=== PATIENT | female | born 1955 | race Caucasian/White ===

== ENCOUNTER 2016-12-30 03:32 | Emergency (ER) | payer OTHER, MEDICAID ==
[~2016-12-30] VITALS: Ht 149.9 cm; Wt 80.5 kg
[2016-12-30 03:42] VITALS: Ht 149.9 cm; Wt 80.5 kg
--- NOTE | 2016-12-30 06:46 | ERD ---
ER Documentation Chief Complaint Date/Time DATE: 12/30/16 Chief Complaint Left lumbar back pain radiating down the left lower extremity HPI The patient is a 61-year-old female with history of right kidney transplant hypertension, who presents the Emergency Department, with complaint of left lumbar back pain radiating down the left lower extremity. The patient reports that 3 days ago she had an accidental mechanical slip and fall in the bathroom, falling onto her back. Since, she has developed pain to the left lumbar region and radiates down the left lower extremity. The pain is worse with upon lying still for prolonged periods of time and with moving from a seated to standing position, and mildly improved with standing and ambulation. She rates her current pain as 8 out of 10, and describes it as aching and burning in nature. She denies any radiation of pain towards the flank region. She denies any bowel or bladder disturbances, urinary retention, lower extremity numbness, paresthesias or weakness. Denies abdominal pain, vomiting or diarrhea. Denies any black or bloody stools. Denies dysuria, hematuria or flank pain. Denies history of IV drug use. Denies fevers or chills. Denies chest pain, palpitations , shortness of breath. Denies any head or neck injury or trauma during the fall. Denies loss of consciousness, syncope or seizure-like activity. Denies any ecchymosis or skin changes over the site of injury. The patient notes that she has tried Tylenol and ibuprofen independently over the past 3 days, with only minimal relief. Given persistent pain, she decided to present to the ED for x-ray imaging and pain control. She has not yet seen her primary medical provider regarding these symptoms. ROS All systems reviewed and are negative except as per history of present illness. Medications Home Meds Active Scripts Hydrocodone/Acetaminophen ([place] 5-325 Tablet) 1 Each Tablet, 1 EACH PO Q4, #12 TAB Prov:CHELY SOLARES PA-C 12/30/16 Allergies Allergies: Uncoded Allergies: PENICILLIN (Allergy, Intermediate, Hives, rash and Swollen face, 12/30/16) PMhx/Soc History of Surgery: Yes (right kidney transplant) Anesthesia Reaction: No Hx Neurological Disorder: No Hx Respiratory Disorders: No Hx Cardiac Disorders: Yes (hypertension) Hx Psychiatric Problems: No Hx Miscellaneous Medical Probl: Yes (right kindey transplant) Hx Alcohol Use: No Hx Substance Use: No Hx Tobacco Use: No Smoking Status: Never smoker Physical Exam Vitals Vital Signs Date Time Temp Pulse Resp B/P Pulse Ox O2 Delivery O2 Flow Rate FiO2 12/30/16 03:42 98.6 86 18 182/78 98 Physical Exam GENERAL: Well-developed, well-nourished, female, in no acute distress. HEENT: Head is normocephalic, atraumatic. No hematomas. No scleral pallor or icterus. Pupils equal, round and reactive to light. Conjunctiva pink. Moist mucous membranes. NECK: Supple. No masses, no tenderness, no lymphadenopathy. Full range of motion. No posterior midline tenderness. RESPIRATORY: Lungs are clear to auscultation bilaterally. Equal breath sounds. Normal expiratory effort. CARDIOVASCULAR: Regular rate and rhythm. S1 and S2 normal. No murmurs, rubs, or gallops. GASTROINTESTINAL: Abdomen is soft, non-tender, and non-distended. No guarding, no rebound tenderness. Normal bowel sounds. No pulsatile abdominal masses. FLANK: No CVA tenderness. No swelling. No ecchymosis. BACK: Tenderness to palpation over the left. Form is muscle and left paraspinal muscles of the lumbar back, L4-S1. No midline bony tenderness. No step-offs. No skin tenting. No crepitus. Normal range of motion. No saddle region anesthesia. No foot drop. Positive left-sided straight leg raise. 5 out of 5 strength to lower extremities bilaterally. EXTREMITIES: No clubbing, cyanosis, or edema. Normal skin perfusion. Moving all extremities. Muscle tone is normal. No focal swelling or erythema. Distal pulses are palpable, 2+ bilaterally. Capillary refill is less than 2 seconds. NEUROLOGIC: The patient is alert, awake, and oriented x 3. No focal neurologic deficits. Motor and sensation grossly intact. Patient is ambulatory in the ED. INTEGUMENT: Skin is intact. Warm and dry. No vesicles. PSYCHIATRIC: Cooperative; appropriate. Results 24 hrs Current Medications Medications (Trade) Dose Ordered Sig/Hema Route PRN Reason Start Time Stop Time Status Last Admin Dose Admin Acetaminophen/ Hydrocodone Bitart ([place] (5/325)) 1 tab ONCE ONCE PO 12/30/16 07:00 12/30/16 07:01 DC 12/30/16 06:44 Procedures/MDM DIAGNOSTIC TESTS AND INTERPRETATION: PROCEDURE: XR Lumbar Spine. CLINICAL INDICATION: 61-year-old female with back pain after a fall. TECHNIQUE: AP, lateral and cone-down lateral view of the lumbar spine were obtained. COMPARISON: No prior studies are available for comparison. FINDINGS:There are clips in the right pelvis. There are 5 lumbar vertebra which are anatomically aligned. The neural canal and nerve root foramina are normal. There is mild disk space narrowing at L5-S1. There is no evidence of a fracture or spondylolisthesis. IMPRESSION: 1. No acute fracture is identified. Disk space narrowing at L5-S1. 2. Prior pelvic surgery. Physician Adelso Date Time Electronically viewed and signed by Bertin Jason Physician on 12/30/2016 08:01 MEDICAL DECISION MAKING: This is a 61-year-old female presenting to the Emergency Department with complaint of left lumbar back pain radiating down to the left lower extremity for the past 3 days s/p mechanical slip and fall. On physical examination the patient had tenderness to palpation noted over the lumbar back, particularly L4-S1. She had a positive left straight leg raise and crossed leg raise, with no saddle-region anesthesia noted. Vital signs were appropriate, other than an increased blood pressure, though patient noted that she has not yet taken her hypertension medications. She had no signs of hypertensive urgency/emergency. She exhibited no altered mental status, neurologic deficits, saddle anesthesia, bowel or bladder disturbances, incontinence, urinary retention, or lower extremity motor or sensory deficits. The differential diagnosis includes, but is not limited to, cauda equina syndrome, epidural abscess, epidural hematoma, osteomyelitis, vertebral fracture , lumbosacral strain, herniated disc, spinal stenosis, nephrolithiasis, osteoarthritis, sciatica, spondylolisthesis, bursitis, fracture, pyelonephritis , abdominal aortic aneurysm, aortic dissection, herpes zoster, radiculopathy, myelopathy, neoplastic disease. X-ray imaging performed revealed no acute fractures. However, mild disk space narrowing at L5-S1 was seen. After rest and administration of [place], the patient reports no new complaints, and decreased pain. Upon my review and interpretation of the patient's presentation, clinical data, and overall ER course, I believe the patient's symptoms are most consistent with lumbar back pain with sciatica, uncertain etiology, but possibly secondary to an underlying herniated disc. However, patient will need to obtain outpatient MRI for further evaluation, and to make such a diagnosis. I doubt cord compression or cauda equina syndrome, as patient is with equal, strong motor in bilateral lower extremities, no bowel/bladder disturbances, incontinence or retention, no saddle-anesthesia. Doubt vertebral fracture, no midline bony tenderness, no history of significant recent trauma. Doubt neoplastic disease, metastases unlikely given no night sweats, systemic symptoms. Doubt epidural abscess, patient is afebrile, with no history of IV drug use. Renal/aortic pathology not consistent with patient history or physical examination, no pulsatile abdominal masses, equal pulses bilaterally. Doubt pyelonephritis, no systemic symptoms, no flank pain, no CVA tenderness. Doubt zoster, no vesicular lesions noted. At this time, the patient is in stable condition and therefore can be discharged home with a prescription for [place] and strict return precautions for signs of deteriorating or worsening condition. The patient is advised to follow up with her primary care provider within 1-2 days for reevaluation and further management, or return to the ER sooner for any new or worsening symptoms. I shared my medical decision making and plan with the patient at length and in great detail, and the patient verbally understands and agrees with the plan for further observation and care as an outpatient. At the time of discharge, all questions were answered. Departure Diagnosis: Primary Impression: Low back pain with left-sided sciatica Chronicity: acute Back pain laterality: left Qualified Code: M54.42 - Acute left-sided low back pain with left-sided sciatica Condition: Stable Patient Instructions: Back Pain (Acute Or Chronic), Back Pain W/ Sciatica, Relieving Back Pain, Self-Care for Low Back Pain, Understanding Sciatica Additional Instructions: Llame al doctor MAANA y federica nilsa ELIOT PARA DENTRO DE 1-2 JAY.Dgale a la secretaria que nosotros le instruimos hacer esta eliot.Avise o llame si can condicin se empeora antes de la eliot. Regresa aqui si peor o no mejor. CHELY SOLARES PA-C Dec 30, 2016 06:45
[2016-12-30] MEDS ORDERED: HYDROCODONE/APAP (5/325) TAB PO ONE (07:00)
--- NOTE | 2016-12-30 08:01 | RADRPT ---
PROCEDURE: XR Lumbar Spine. CLINICAL INDICATION: 61-year-old female with back pain after a fall. TECHNIQUE: AP, lateral and cone-down lateral view of the lumbar spine were obtained. COMPARISON: No prior studies are available for comparison. FINDINGS: There are clips in the right pelvis. There are 5 lumbar vertebra which are anatomically aligned. T he neural canal and nerve root foramina are normal. There is mild disk space narrowing at L5-S1. T here is no evidence of a fracture or spondylolisthesis. IMPRESSION: 1. No acute fracture is identified. Disk space narrowing at L5-S1. 2. Prior pelvic surgery. RPTAT:AAJJ Physician Adelso Date Time Electronically viewed and signed by Physician Adelso on 12/30/2016 08:01 /
[2016-12-30] MEDS ORDERED: HYDR-906 PO (08:15)
== END 2016-12-30 08:30 | disposition home or self-care (01) ==
LOC: FTE 03:32
DX: S39.92XA Unspecified injury of lower back, initial encounter (principal); I10 Essential (primary) hypertension; W01.0XXA Fall on same level from slipping, tripping and stumbling without subsequent striking against object, initial encounter; Y92.9 Unspecified place or not applicable
CPT/HCPCS: 72100